=== PATIENT | female | born 1975 | race Caucasian/White ===

== ENCOUNTER 2018-04-07 14:50 | Emergency (ER) | payer MEDICAID ==
[~2018-04-07] VITALS: Ht 157.5 cm; Wt 61.2 kg
[2018-04-07 14:56] VITALS: BP 155/80
[2018-04-07 15:30] LABS: APPEARANCE,URINE SLIGHTLY CLOUDY (CLEAR); COLOR,URINE YELLOW (YELLOW)
[2018-04-07 15:31] LABS: BLOOD, URINE 4+ (NEGATIVE); LEUKOCYTE ESTERASE ,URINE TRACE (NEGATIVE); NITRITE, URINE NEGATIVE (NEGATIVE); PH,URINE 6.5 (5.0-9.0)
[2018-04-07 15:32] LABS: BILIRUBIN,URINE NEGATIVE (NEGATIVE); UGLUCOSE NEGATIVE (NEGATIVE)
[2018-04-07 15:37] LABS: RBC,URINE 80-100 /HPF (0-5); WBC,URINE 0-5 (RARE) /HPF (0-5)
[2018-04-07] MEDS ORDERED: MORPHINE SULFATE 2 MG/ML SYR IM ONE (17:50)
[2018-04-07] MEDS ORDERED: KETOROLAC 60 MG/2 ML VIAL IM ONE (17:50)
[2018-04-07 19:31] VITALS: BP 155/80
== END 2018-04-07 19:31 | disposition home or self-care (01) ==
LOC: MED 14:50
DX: M47.816 Spondylosis without myelopathy or radiculopathy, lumbar region (principal)
CPT/HCPCS: 74176; 81001; 81025; 96372; 99285; J1885; J2270

== ENCOUNTER 2018-04-25 16:53 | Emergency (ER) | payer MEDICAID ==
[~2018-04-25] VITALS: Ht 154.9 cm; Wt 59.0 kg
[2018-04-25 17:05] VITALS: BP 143/84
[2018-04-25] MEDS ORDERED: KETOROLAC 60 MG/2 ML VIAL IM ONE (17:40)
[2018-04-25 17:57] VITALS: BP 132/89
== END 2018-04-25 17:57 | disposition home or self-care (01) ==
LOC: MED 16:53
DX: M54.40 Lumbago with sciatica, unspecified side (principal); I10 Essential (primary) hypertension
CPT/HCPCS: 81002; 81025; 96372; 99283; J1885

== ENCOUNTER 2018-05-30 19:49 | Emergency (ER) | payer MEDICAID ==
[~2018-05-30] VITALS: Ht 154.9 cm; Wt 61.2 kg
[2018-05-30 20:25] VITALS: BP 148/90
--- NOTE | 2018-05-30 20:27 | NUR ---
TO LOBBY A/W BED, NINO WONG NOTED
--- NOTE | 2018-05-30 20:45 | NUR ---
PT AMBULATED TO ER BED 2
--- NOTE | 2018-05-30 20:45 | NUR ---
43 Y/O F PRESESNTS W/C/O EPIGASTRIC PAIN X 1 DAY ASSOCIATED WITH N/V. AAOX4, PERRL, WITH EVEN AND STEADY GAIT; LUNGS CLEAR BL, BREATHING UNLABORED; HR EVEN AND REGULAR, BL PERIPHERAL PULSES PRESENT; BS ACTIVE X4. PT DENIES ANY FEVER, CP, SOB, OR COUGH AT THIS TIME; PT STATES 8/10 PAIN AT THIS TIME; VSS; PATIENT POSITIONED FOR COMFORT; HOB ELEVATED; BEDRAILS UP X2; BED DOWN.
[2018-05-30] MEDS ORDERED: NACL 0.9% 1,000 ML IV ONE (21:00)
[2018-05-30] MEDS ORDERED: KETOROLAC 30 MG/ML VIAL IVP ONE (21:00)
[2018-05-30] MEDS ORDERED: ONDANSETRON 4 MG/2 ML VIAL IVP ONE (21:00)
--- NOTE | 2018-05-30 21:00 | NUR ---
PT SITTING IN BED WITH BOYFRIEND AT THE BEDSIDE. PT TEXTING ON CELL PHONE WITH LEGS UNCROSSED.
[2018-05-30 21:23] LABS: EOSINOPHILS % (AUTO) 0.1 % (0.0-4.0); HEMATOCRIT 44.7 % (36-48); HEMOGLOBIN 14.6 g/dL (12.0-16.0); LYMPHOCYTES # (AUTO) 0.6 K/uL (2.5-16.5); LYMPHOCYTES % (AUTO) 4.8 % (20.5-51.1); MEAN CORPUSCULAR HEMOGLOBIN 29 pg (27-31); MEAN CORPUSCULAR HGB CONC 33 g/dL (33-37); MEAN CORPUSCULAR VOLUME 88.6 fL (80-94); MONOCYTES # (AUTO) 0.5 K/uL (0.8-1.0); NEUTROPHILS # (AUTO) 11.3 K/uL (1.8-7.7); NEUTROPHILS % (AUTO) 91.1 % (42.2-75.2); PLATELET COUNT (AUTO) 400 K/uL (140-450); RED BLOOD CELL COUNT(AUTO) 5.05 MIL/uL (4.20-5.40); RED CELL DISTRIBUTION WIDTH 13.9 % (11.6-13.7); WHITE BLOOD COUNT (AUTO) 12.4 K/uL (4.8-10.8)
[2018-05-30 21:36] LABS: BARBITURATE, URINE NEG. ng/ml (NEG <=200); BENZODIAZEPINE, URINE NEG. ng/mL (NEG <=200); CANNABINOID, URINE NEG. ng/mL (NEG <=50); COCAINE, URINE NEG. ng/mL (NEG <=300); OPIATE, URINE NEG. ng/mL (NEG <=2000); PHENCYCLIDINE SCREEN,URINE NEG. ng/mL (NEG <=25)
--- NOTE | 2018-05-30 22:56 | NUR ---
PT STATES SHE IS IN 10/[address] RUSSELL MADE AWARE.
[2018-05-30] MEDS ORDERED: fentaNYL 0.05 MG/ML VIAL IVP ONE (23:00)
--- NOTE | 2018-05-30 23:16 | NUR ---
PT TAKEN TO CT AT THIS TIME.
--- NOTE | 2018-05-30 23:25 | NUR ---
PT RETURN FROM CT
[2018-05-31 00:15] LABS: ANION GAP 15.2 (8-16); CARBON DIOXIDE 26.1 mmol/L (21-32); CREATININE 0.8 mg/dL (0.6-1.3); POTASSIUM 4.3 mmol/L (3.5-5.1); TOTAL BILIRUBIN 0.8 mg/dL (0.0-1.0)
[2018-05-31 00:47] VITALS: BP 135/75
--- NOTE | 2018-05-31 00:48 | NUR ---
Patient discharged with v/s stable. Written and verbal after care instructions given and explained. Patient alert, oriented and verbalized understanding of instructions. Ambulatory with steady gait. All questions addressed prior to discharge. ID band removed. Patient advised to follow up with PMD. Rx of MYLANTA given. Patient educated on indication of medication including possible reaction and side effects. Opportunity to ask questions provided and answered.
== END 2018-05-31 00:48 | disposition home or self-care (01) ==
LOC: MED 19:49
DX: R10.13 Epigastric pain (principal); R11.2 Nausea with vomiting, unspecified; I10 Essential (primary) hypertension
CPT/HCPCS: 36415; 74176; 80053; 80305; 81002; 81025; 83690; 85025; 96361; 96374; 96375; 99284; J1885; J2405; J3010; J7030

== ENCOUNTER 2018-12-14 14:32 | Emergency (ER) | payer MEDICAID ==
[~2018-12-14] VITALS: Ht 154.9 cm; Wt 68.0 kg
[2018-12-14 14:39] VITALS: BP 134/91
--- NOTE | 2018-12-14 15:20 | NUR ---
BIB . AAO X4 C/O SEVERE FRONTAL HEADACHE SINCE YESTERDAY, +N/V, ABDOMINAL PAIN RADIATING TO BACK. VOMITED X 4 TODAY. PT TOOK TYLENOL THIS AM WITH NO RELIEF. PT DENIES FEVER, DIZZINESS, TRAUMA, SOB, DIARRHEA. PT STATES PRESSURE WHEN URINATING, BUT DENIES ANY BURNING SENSATION. PERRLA BRISK 3 MM. PT SENSITIVE TO LIGHT. ER TO EVALUATE PT.
[2018-12-14] MEDS ORDERED: NACL 0.9% 1,000 ML IV SCH (15:56)
--- NOTE | 2018-12-14 15:57 | NUR ---
DR CURRY AT BEDSIDE FOR PT EVAL
[2018-12-14] MEDS ORDERED: ONDANSETRON 4 MG/2 ML VIAL IVP ONE (16:00)
[2018-12-14 16:05] LABS: APPEARANCE,URINE CLEAR (CLEAR); BILIRUBIN,URINE NEGATIVE (NEGATIVE); BLOOD, URINE NEGATIVE (NEGATIVE); COLOR,URINE YELLOW (YELLOW); LEUKOCYTE ESTERASE ,URINE NEGATIVE (NEGATIVE); NITRITE, URINE NEGATIVE (NEGATIVE); PH,URINE 7.5 (5.0-9.0); UGLUCOSE NEGATIVE (NEGATIVE)
[2018-12-14 17:23] LABS: BASOPHILS % (AUTO) 0.4 % (0.0-2.0); EOSINOPHILS # (AUTO) 0.1 K/uL (0-0.4); EOSINOPHILS % (AUTO) 0.8 % (0.0-4.0); HEMATOCRIT 41.9 % (36-48); HEMOGLOBIN 13.9 g/dL (12.0-16.0); LYMPHOCYTES # (AUTO) 1.2 K/uL (2.5-16.5); LYMPHOCYTES % (AUTO) 13.7 % (20.5-51.1); MEAN CORPUSCULAR HEMOGLOBIN 30 pg (27-31); MEAN CORPUSCULAR HGB CONC 33 g/dL (33-37); MEAN CORPUSCULAR VOLUME 89.2 fL (80-94); MONOCYTES # (AUTO) 0.6 K/uL (0.8-1.0); MONOCYTES % (AUTO) 6.7 % (1.7-9.3); NEUTROPHILS % (AUTO) 78.4 % (42.2-75.2); PLATELET COUNT (AUTO) 397 K/uL (140-450); RED CELL DISTRIBUTION WIDTH 14.4 % (11.6-13.7); WHITE BLOOD COUNT (AUTO) 8.9 K/uL (4.8-10.8)
[2018-12-14] MEDS ORDERED: KETOROLAC 15 MG/ML VIAL IVP ONE (17:25)
[2018-12-14] MEDS ORDERED: ACETAMINOPHEN EXTRA STRENGTH 500 MG TAB PO ONE (17:25)
[2018-12-14] MEDS ORDERED: diphenhydrAMINE 50 MG/ML VIAL IVP ONE (17:25)
[2018-12-14] MEDS ORDERED: METOCLOPRAMIDE 10 MG/2 ML INJ VIAL IVP ONE (17:25)
[2018-12-14 17:29] LABS: ANION GAP 9.1 (8-16); CARBON DIOXIDE 30.3 mmol/L (21-32); CREATININE 0.6 mg/dL (0.6-1.3); POTASSIUM 4.4 mmol/L (3.5-5.1)
[2018-12-14 17:35] LABS: ALBUMIN 3.3 g/dL (3.4-5.0); TOTAL BILIRUBIN 0.4 mg/dL (0.0-1.0)
--- NOTE | 2018-12-14 17:35 | NUR ---
pt to ct via wc
[2018-12-14 19:09] VITALS: BP 128/91
--- NOTE | 2018-12-14 19:10 | NUR ---
Patient discharged with v/s stable. PT STATED "I FEEL MUCH BETTER" PAIN 0/10. Written and verbal after care instructions given and explained. Patient alert, oriented and verbalized understanding of instructions. Ambulatory with steady gait. All questions addressed prior to discharge. ID band removed. Patient advised to follow up with PMD. Rx of PEPCID AND IBUPROFEN WAS given. Patient educated on indication of medication including possible reaction and side effects. Opportunity to ask questions provided and answered.
== END 2018-12-14 19:09 | disposition home or self-care (01) ==
LOC: MED 14:32
DX: R51 Headache (principal); H53.149 Visual discomfort, unspecified; I10 Essential (primary) hypertension; F17.200 Nicotine dependence, unspecified, uncomplicated; F15.10 Other stimulant abuse, uncomplicated; Z86.61 Personal history of infections of the central nervous system
CPT/HCPCS: 36415; 70450; 80053; 81003; 81025; 83690; 84484; 84703; 85025; 93005; 96374; 96375; 99284; J1200; J1885; J2405; J2765; J7030

== ENCOUNTER 2020-06-30 10:30 | Emergency (ER) | payer MEDICAID ==
[~2020-06-30] VITALS: Ht 154.9 cm; Wt 76.7 kg
[2020-06-30 10:36] VITALS: BP 139/100
--- NOTE | 2020-06-30 10:37 | NUR ---
Patient ambulated to bed 2. RN evaluating the patient at bedside.
[2020-06-30] MEDS ORDERED: cefTRIAXone 1,000 MG in DEXT 5% MINI-BAG PLUS 50 ML IV ONE (10:50)
[2020-06-30] MEDS ORDERED: ONDANSETRON 4 MG/2 ML VIAL IVP ONE (10:50)
[2020-06-30] MEDS ORDERED: KETOROLAC 30 MG/ML VIAL IVP ONE (10:50)
[2020-06-30] MEDS ORDERED: NACL 0.9% 1,000 ML IV SCH (10:50)
[2020-06-30] MEDS ORDERED: cefTRIAXone 1,000 MG VIAL ONE (10:59)
[2020-06-30 11:13] LABS: BASOPHILS # (AUTO) 0.1 K/uL (0.00-0.22); EOSINOPHILS # (AUTO) 0.1 K/uL (0-0.4); EOSINOPHILS % (AUTO) 1.4 % (0.0-4.0); HEMATOCRIT 43.4 % (36-48); HEMOGLOBIN 14.5 g/dL (12.0-16.0); LYMPHOCYTES # (AUTO) 1.7 K/uL (2.5-16.5); LYMPHOCYTES % (AUTO) 22.6 % (20.5-51.1); MEAN CORPUSCULAR HEMOGLOBIN 29 pg (27-31); MEAN CORPUSCULAR HGB CONC 33 g/dL (33-37); MEAN CORPUSCULAR VOLUME 88.2 fL (80-94); MONOCYTES # (AUTO) 0.7 K/uL (0.8-1.0); MONOCYTES % (AUTO) 9.5 % (1.7-9.3); NEUTROPHILS # (AUTO) 5.1 K/uL (1.8-7.7); NEUTROPHILS % (AUTO) 65.5 % (42.2-75.2); PLATELET COUNT (AUTO) 427 K/uL (140-450); RED BLOOD CELL COUNT(AUTO) 4.93 MIL/uL (4.20-5.40); RED CELL DISTRIBUTION WIDTH 14.6 % (11.6-13.7); WHITE BLOOD COUNT (AUTO) 7.7 K/uL (4.8-10.8)
[2020-06-30 11:20] LABS: CARBON DIOXIDE 27.5 mmol/L (21-32); CREATININE 0.6 mg/dL (0.6-1.3); POTASSIUM 4.5 mmol/L (3.5-5.1)
[2020-06-30 11:26] LABS: ALBUMIN 3.6 g/dL (3.4-5.0); TOTAL BILIRUBIN 0.6 mg/dL (0.0-1.0)
--- NOTE | 2020-06-30 11:28 | NUR ---
@1037 received care of 45 y/o female c/o left lower quadrant radiating to back, with nausea x 2 days no med hx. NKA. CLARK @ bedside for assessment.
[2020-06-30 11:56] LABS: APPEARANCE,URINE CLOUDY (CLEAR); BILIRUBIN,URINE NEGATIVE (NEGATIVE); BLOOD, URINE 3+ (NEGATIVE); COLOR,URINE BROWN (YELLOW); LEUKOCYTE ESTERASE ,URINE TRACE (NEGATIVE); NITRITE, URINE NEGATIVE (NEGATIVE); UGLUCOSE NEGATIVE (NEGATIVE)
[2020-06-30 12:44] LABS: RBC,URINE 11-20 (MOD) /HPF (0-5)
[2020-06-30 13:29] VITALS: BP 128/85
== END 2020-06-30 13:29 | disposition home or self-care (01) ==
LOC: MED 10:30
DX: N12 Tubulo-interstitial nephritis, not specified as acute or chronic (principal); I10 Essential (primary) hypertension; F17.200 Nicotine dependence, unspecified, uncomplicated; Z98.890 Other specified postprocedural states
CPT/HCPCS: 36415; 80053; 81001; 81025; 83605; 85025; 87040; 87086; 96365; 96375; 99284; J0696; J1885; J2405; J7030; J7060

== ENCOUNTER 2020-08-27 16:25 | Emergency (ER) | payer MEDICAID ==
[~2020-08-27] VITALS: Ht 160 cm; Wt 63.5 kg
[2020-08-27 16:41] VITALS: BP 139/99
[2020-08-27] MEDS ORDERED: HYDROcodone/APAP 5/325 MG 1 TAB TAB PO ONE (17:20)
[2020-08-27 18:01] LABS: APPEARANCE,URINE HAZY (CLEAR); BILIRUBIN,URINE NEGATIVE (NEGATIVE); BLOOD, URINE NEGATIVE (NEGATIVE); COLOR,URINE YELLOW (YELLOW); LEUKOCYTE ESTERASE ,URINE NEGATIVE (NEGATIVE); NITRITE, URINE NEGATIVE (NEGATIVE); UGLUCOSE NEGATIVE (NEGATIVE)
[2020-08-27] MEDS ORDERED: METH750T5 PO (18:09)
[2020-08-27] MEDS ORDERED: NAPR-54 PO (18:09)
[2020-08-27 19:39] VITALS: BP 139/99
== END 2020-08-27 19:39 | disposition home or self-care (01) ==
LOC: MED 16:25
DX: M54.6 Pain in thoracic spine (principal); I10 Essential (primary) hypertension; R10.9 Unspecified abdominal pain; R35.0 Frequency of micturition
CPT/HCPCS: 81003; 81025; 99283

== ENCOUNTER 2020-09-13 21:20 | Emergency (ER) | payer MEDICAID ==
[~2020-09-13] VITALS: Ht 157.5 cm; Wt 76.2 kg
[~2020-09-13 21:20] MED LIST: METH750T5 PO; NAPR-54 PO
[2020-09-13 21:30] VITALS: BP 112/66
--- NOTE | 2020-09-13 21:40 | NUR ---
PT AMBULATED WITH A SLIGHT LIMP OF THE RIGHT FOOT TO BED 7
--- NOTE | 2020-09-13 21:45 | NUR ---
45 Y/O FEMALE PRESENTS TO THE ED WITH C/O TOE PAIN. PAIN IS AT THE RIGHT 5TH TOE. PT REPORTS WAS AT MOM'S HOUSE AND STUBBED THE TOE ON THE BED 3 DAYS AGO. PAIN HAS PERSISTED AND IS AT A 10/10 PAIN. TOE IS WARM, RED, AND SWOLLEN. SKIN INTACT. PMH: N/A ALLERGIES: NKA
--- NOTE | 2020-09-13 22:00 | NUR ---
PT TO RADIOLOGY VIA W/C
--- NOTE | 2020-09-13 22:11 | NUR ---
RETURNED FROM RADIOLOGY
[2020-09-13] MEDS ORDERED: ACET-8386 PO (22:21)
--- NOTE | 2020-09-13 22:28 | NUR ---
pts 4th and 5th toe were budy tapped and ortho shoe was given to pt. pts pmsc wnl.
[2020-09-13 22:29] VITALS: BP 112/66
--- NOTE | 2020-09-13 22:29 | NUR ---
Patient discharged with v/s stable. Written and verbal after care instructions given and explained. Patient alert, oriented and verbalized understanding of instructions. Ambulatory with steady gait. All questions addressed prior to discharge. ID band removed. Patient advised to follow up with PMD. Rx of HYDROCODON-ACETAMINOPHEN 5-325 given. Patient educated on indication of medication including possible reaction and side effects. Opportunity to ask questions provided and answered.
== END 2020-09-13 22:29 | disposition home or self-care (01) ==
LOC: MED 21:20
DX: S92.591A Other fracture of right lesser toe(s), initial encounter for closed fracture (principal); I10 Essential (primary) hypertension; Z79.899 Other long term (current) drug therapy; Y93.39 Activity, other involving climbing, rappelling and jumping off; Y93.89 Activity, other specified; Y92.89 Other specified places as the place of occurrence of the external cause; Y99.8 Other external cause status
CPT/HCPCS: 73660; 99283

== ENCOUNTER 2021-01-18 20:05 | Emergency (ER) | payer MEDICAID ==
[~2021-01-18] VITALS: Ht 160 cm; Wt 72.6 kg
[~2021-01-18 20:05] MED LIST changes: +ACET-8386 PO
[2021-01-18 20:30] VITALS: BP 150/90
--- NOTE | 2021-01-18 20:32 | NUR ---
TO LOBBY A/W BED AMBULATORY
[2021-01-18] MEDS ORDERED: IBUP-2213 PO (21:59)
--- NOTE | 2021-01-18 22:05 | NUR ---
LEFT WITHOUT DC PAPERS. Patient discharged with v/s stable. verbal after care instructions given and explained. Advised to follow up with PMD.
[2021-01-18 22:06] VITALS: BP 140/90
== END 2021-01-18 22:05 | disposition home or self-care (01) ==
LOC: MED 20:05
DX: H92.01 Otalgia, right ear (principal); I10 Essential (primary) hypertension; F17.210 Nicotine dependence, cigarettes, uncomplicated; F12.90 Cannabis use, unspecified, uncomplicated; Z79.899 Other long term (current) drug therapy; Z71.6 Tobacco abuse counseling
CPT/HCPCS: 99281

== ENCOUNTER 2021-07-14 11:53 | Emergency (ER) | payer MEDICAID ==
[~2021-07-14] VITALS: Ht 165.1 cm; Wt 72.1 kg
[~2021-07-14 11:53] MED LIST changes: +IBUP-2213 PO
--- NOTE | 2021-07-14 11:53 | NUR ---
46 Y/O FEMALE BIBA FROM HOME FOUND UNRESPONISVE ON GROUND BY . PER EMT STATED PT IS EMOTIONALLY DISTRESSED OVER FINANCIAL ISSUES. PT IS A&OX2 TO NAME AND PRESIDENT ONLY, [facility] 13. PT HAD 1 ACTIVE VOMITING EPISODE ZOFRAN 4MG IVP ORDERED PER MD AT BEDSIDE GIVEN TO LEFT AC 18 G. PER FIRE IV TO LEFT HAND 20G. PT IS DIAPHORECTIC AND ACTIVELY MOVING AROUND. PMH: UNOBTAINABLE ALLERGIES: UNOBTAINABLE
--- NOTE | 2021-07-14 11:55 | NUR ---
18G IV ESTABLISHED IN L AC AND BLOOD WORK COLLECTED FROM IV. BLOOD WALKED OVER TO LAB BY ROMAN
--- NOTE | 2021-07-14 11:58 | NUR ---
PT BIBA TAKEN TO ER BED 9.
[2021-07-14] MEDS ORDERED: ONDANSETRON 4 MG/2 ML VIAL IVP ONE (12:00)
--- NOTE | 2021-07-14 12:15 | NUR ---
RAD at bedside
--- NOTE | 2021-07-14 12:17 | NUR ---
Code Brain initiated
[2021-07-14] MEDS ORDERED: NACL 0.9% 1,000 ML IV ONE (12:20)
--- NOTE | 2021-07-14 12:20 | NUR ---
Patient transported via gurney to CT with Telemetry box in place accompanied by RN and RAD staff
[2021-07-14 12:26] VITALS: BP 128/76
[2021-07-14] MEDS ORDERED: PHENYTOIN 1,000 MG in NACL 0.9% 100 ML IV ONE (12:35)
[2021-07-14] MEDS ORDERED: NICARDIPINE HYDROCHLORIDE 25 MG in NACL 0.9% 240 ML IV ONE (12:35)
--- NOTE | 2021-07-14 12:42 | NUR ---
PT TAKEN TO ER BED 9 VIA [facility].
[2021-07-14] MEDS ORDERED: NICARDIPINE HYDROCHLORIDE 2.5 MG/ML VIAL IV ONE (12:47)
--- NOTE | 2021-07-14 12:49 | NUR ---
PT RETURNED TO BED [address] V[address] [facility]
--- NOTE | 2021-07-14 13:00 | NUR ---
PT CURRENTLY A&OX1 TO NAME ONLY AND CONTINUES TO STATE "WHERE IS MY ?" GCS IS CURRENTLY 13 AT THIS TIME. PT ALSO COMPLAINING OF HEADACHE WELL AND STILL STATING "I FEEL SICK."
--- NOTE | 2021-07-14 13:12 | NUR ---
Patient to be transferred to [facility]. Is being transferred due to HIGHER LEVEL OF CARE. Receiving facility has accepting physician and available space. ER physician has signed transfer form. Patient or responsible constitution party has agreed to transfer and signed form. Patient belongings inventoried and will be sent with patient. Copy of nursing notes, lab reports, EKG, Physicians Orders and X-rays to be sent with patient. Report called to ROMAN HANNA at receiving facility. [facility] ambulance service has been called for transfer. ETA is 1310.
[2021-07-14 13:20] LABS: ANION GAP 15.1 (8-16); CARBON DIOXIDE 25.1 mmol/L (21-32); CREATININE 0.8 mg/dL (0.6-1.3); POTASSIUM 3.2 mmol/L (3.5-5.1)
[2021-07-14 13:25] LABS: BASOPHILS # (AUTO) 0.1 K/uL (0.00-0.22); BASOPHILS % (AUTO) 0.6 % (0.0-2.0); EOSINOPHILS # (AUTO) 0.1 K/uL (0-0.4); EOSINOPHILS % (AUTO) 1.1 % (0.0-4.0); HEMATOCRIT 39.7 % (36-48); HEMOGLOBIN 13.2 g/dL (12.0-16.0); LYMPHOCYTES # (AUTO) 3.1 K/uL (2.5-16.5); LYMPHOCYTES % (AUTO) 30.1 % (20.5-51.1); MEAN CORPUSCULAR HEMOGLOBIN 28 pg (27-31); MEAN CORPUSCULAR HGB CONC 33 g/dL (33-37); MONOCYTES % (AUTO) 9.5 % (1.7-9.3); NEUTROPHILS # (AUTO) 6.1 K/uL (1.8-7.7); NEUTROPHILS % (AUTO) 58.7 % (42.2-75.2); PLATELET COUNT (AUTO) 482 K/uL (140-450); RED BLOOD CELL COUNT(AUTO) 4.78 MIL/uL (4.20-5.40); RED CELL DISTRIBUTION WIDTH 14.8 % (11.6-13.7); WHITE BLOOD COUNT (AUTO) 10.3 K/uL (4.8-10.8)
--- NOTE | 2021-07-14 13:30 | NUR ---
PT TAKEN TO [facility] VIA [facility]
[2021-07-14 15:00] LABS: PROTHROMBIN TIME 9.5 secs (10.8-13.4)
--- NOTE | 2021-07-15 13:34 | NUR ---
LATE ENTRY-IV NORMAL SALINE DISCONTINUED AT 1330.
== END 2021-07-14 13:30 | disposition short-term general hospital (02) ==
LOC: MED 11:53
DX: I60.9 Nontraumatic subarachnoid hemorrhage, unspecified (principal); R55 Syncope and collapse; R11.2 Nausea with vomiting, unspecified; I12.9 Hypertensive chronic kidney disease with stage 1 through stage 4 chronic kidney disease, or unspecified chronic kidney disease; N18.9 Chronic kidney disease, unspecified; Z79.899 Other long term (current) drug therapy
CPT/HCPCS: 36415; 70450; 70496; 70498; 71045; 80048; 84484; 85025; 85610; 85730; 86886; 86900; 86901; 93005; 96361; 96374; 96375; 99291; J1165; J2405; J7030; Q9967

== ENCOUNTER 2021-10-18 09:06 | Emergency (ER) | payer MEDICAID ==
[~2021-10-18] VITALS: Ht 154.9 cm; Wt 74.6 kg
[2021-10-18 09:13] VITALS: BP 136/75
--- NOTE | 2021-10-18 09:19 | NUR ---
PT AMB TO BED 4.
--- NOTE | 2021-10-18 09:25 | NUR ---
XR AT PT BEDSIDE
--- NOTE | 2021-10-18 09:31 | NUR ---
46 Y/O FEMALE BIB SELF C/O L ELBOW PAIN S/P FALL YESTERDAY. PT STATES SHE FELL OFF A CHAIR WHEN SHE LOST HER BALANCE. PT STATES SHE LANDED ON HER L SIDE W/ PAIN IN THE L SHOULDER. PT DENIES LOC. PT DENIES CHEST PAIN, SOB. PT DENIES FEVER OR CHILLS. PT ALERT AND ORIENTED X4. BED LOCKED IN LOWEST POSITION. BED RAILX1. PMH: DENIES MEDS: DENIES NKA
[2021-10-18] MEDS ORDERED: KETOROLAC 60 MG/2 ML VIAL IM ONE (10:25)
--- NOTE | 2021-10-18 11:00 | NUR ---
PT PLACED IN LONG ARM SPLINT/SLING, TOLERATED WELL. PULSES WNL. PT DENIES ANY NUMBNESS AND IS ABLE TO MOVE FINGERS WNL.
[2021-10-18] MEDS ORDERED: ACET-8386 PO (11:06)
[2021-10-18 11:21] VITALS: BP 142/84
--- NOTE | 2021-10-18 11:24 | NUR ---
Patient discharged with v/s stable. Written and verbal after care instructions given and explained. Patient alert, oriented and verbalized understanding of instructions. Ambulatory with steady gait. All questions addressed prior to discharge. ID band removed. Patient advised to follow up with PMD. Rx of HYDROCODONE-ACETAMINOPHEN 5-325 given. Patient educated on indication of medication including possible reaction and side effects. Opportunity to ask questions provided and answered.
== END 2021-10-18 11:21 | disposition home or self-care (01) ==
LOC: MED 09:06
DX: S52.122A Displaced fracture of head of left radius, initial encounter for closed fracture (principal); I12.9 Hypertensive chronic kidney disease with stage 1 through stage 4 chronic kidney disease, or unspecified chronic kidney disease; N18.9 Chronic kidney disease, unspecified; Z79.899 Other long term (current) drug therapy; Z98.890 Other specified postprocedural states; W19.XXXA Unspecified fall, initial encounter; Y93.89 Activity, other specified; Y92.89 Other specified places as the place of occurrence of the external cause; Y99.8 Other external cause status
CPT/HCPCS: 29105; 73080; 96372; 99283; J1885